=== PATIENT | male | born 1950 | race Caucasian/White ===

== ENCOUNTER → 2020-12-12 10:16 | Outpatient (BNVA) | payer MEDICARE, OTHER, SELFPAY | PROVIDERS: PCP Nurse Practitioner Family; Visit Provider Urology | DX: N52.9 Male erectile dysfunction, unspecified (principal); N41.1 Chronic prostatitis; R35.1 Nocturia | CPT/HCPCS: 51798; 99212 ==

== ENCOUNTER → 2021-01-25 08:56 | Outpatient (BNVA) | payer MEDICARE, OTHER, SELFPAY | PROVIDERS: Visit Provider Urology | DX: N41.1 Chronic prostatitis (principal); N52.9 Male erectile dysfunction, unspecified | CPT/HCPCS: Q3014 ==

== ENCOUNTER → 2021-08-14 13:11 | Outpatient (BNVA) | payer MEDICARE, OTHER, SELFPAY | PROVIDERS: PCP Nurse Practitioner Family; Visit Provider Urology | DX: N41.1 Chronic prostatitis (principal); R35.1 Nocturia; N52.9 Male erectile dysfunction, unspecified | CPT/HCPCS: 51798; 99212 ==

== ENCOUNTER → 2022-02-14 13:01 | Outpatient (BNVA) | payer MEDICARE, OTHER, SELFPAY | PROVIDERS: PCP Registered Nurse; Visit Provider Urology | DX: N41.1 Chronic prostatitis (principal); R35.1 Nocturia; N52.9 Male erectile dysfunction, unspecified | CPT/HCPCS: 51798; 99212 ==

== ENCOUNTER 2023-02-13 13:42 | Outpatient (AMB) | payer MEDICARE, OTHER, SELFPAY ==
--- NOTE | 2023-02-13 13:48 | MHC.OFFVIS ---
Intake Intake Visit Reasons: yearly follow up/PSA(set) Intake Note: Patient is Present for Follow Up Urology Medication: Finasteride, Antibiotic Allergies: Penicillin, Sulfa, Clindamycin Blood Thinners: None Pharmacy: [facility]: Compliants: Allergies penicillin G Allergy (Unknown, Verified 02/13/23 13:53) Unknown Sulfa (Sulfonamide Antibiotics) Allergy (Unknown, Verified 02/13/23 13:53) Unknown Clindamycin HCl Allergy (Unknown, Uncoded 02/13/23 13:53) unk HPI HPI Comments History of Present Illness Details ?Rosie MELCHOR is a very pleasant male. He is a patient of Dr. Schwartz. He is seen for the following urologic conditions. - chronic prostatitis - erectile dysfunction - lower urinary tract symptoms PSA stable Has had breast tenderness with finasteride Cut back to 1/2 tablet Thursday, Retrial sildenafil 100 mg on demand Prescription provided Prostatitis/CPPS:? Chronic prostatitis yearly follow-up ? They present for evaluation of, chronic prostatitis.? He is currently being treated with?prior TURP for BPH.? Current symptoms include? nocturia ?Yes ? pelvic discomfort ?Yes ? Symptoms have been present?for a number of months.? Laboratory testing included?PSA 09/05 6.5 ?09/05 Urine genetics - Staphylococcus pansensitive clarity ?02/05 1.9 ?08/07 1.1, 02/07 1.0, 02/08 0.7, 02/09 0.9 ? Pain is present?lower back, perineum.? Associated conditions include? STDs ?No ? nephrolithiasis ?No ? diabetes ?No ? inflammatory bowel disease ?No ? diverticulitis ?No ? radiation to the pelvis ?No ? surgery ?BPH Erectile dysfunction Responsive to sildenafil Trial daily Cialis 5 mg PFSH Medical History Chronic prostatitis Migraine Nocturia Surgical History History of surgery Review of Systems Const Denies chills and Denies fever(s) Card Reports no additional complaints and Denies syncope Resp Denies cough GI Denies abdominal pain and Denies heartburn Reports as per HPI and Denies change in libido Neuro Denies syncope Psych Denies change in libido Endo Denies change in libido Physical Exam Const General: cooperative, healthy appearing, comfortable and no acute distress Orientation/consciousness: patient oriented x3 HEENT Face and sinus: Yes normal facial exam Mouth: moist mucous membranes Neck Neck: Yes normal visual inspection, Yes full ROM and Yes trachea midline Chest Chest palpation & inspection: normal inspection of the chest Resp Effort & Inspection: normal respiratory effort, able to speak in complete sentences and no respiratory distress GI Inspection: Yes normal to inspection Back/Spine/Pelvis Cervical Spine: normal cervical lordosis Thoracic/Lumbar Spine: thoracic and lumbar spine normal to inspection Skin General skin exam: no rashes or lesions noted Neuro General: patient oriented x3, gait normal, tone normal and moves all extremities Extrem General: Yes normal to inspection and Yes capillary refill normal Assessment & Plan Assessment & Plan (1) Nocturia: Code(s): R35.1 - Nocturia (2) Chronic prostatitis: Code(s): N41.1 - Chronic prostatitis (3) Erectile dysfunction: Code(s): N52.9 - Male erectile dysfunction, unspecified Qualifiers: Erectile dysfunction type: vasculogenic 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 No major barriers to patient understanding were identified. An opportunity to ask questions regarding the treatment plan was provided. All questions were answered. The patient expressed understanding and agreement with the above treatment plan. The patient is aware they should contact our office by phone for worsening of their current condition or the appearance of new urologic symptoms. Compliance is encouraged with any medications and followup testing that is ordered. It is a privilege to participate in the urologic care of your patient. If you have any questions or concerns regarding treatment for the above conditions, or other urologic issues, please do not hesitate to contact me. The office telephone contact is [phone]. This note is constructed using voice recognition software. While every effort has been made to ensure accuracy shipping room helper errors may have been included. 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
== END 2023-02-13 14:08 | disposition home or self-care (01) ==
PROVIDERS: Visit Provider Urology
DX: R35.1 Nocturia (principal); N41.1 Chronic prostatitis; N52.01 Erectile dysfunction due to arterial insufficiency
CPT/HCPCS: 99214

== ENCOUNTER → 2023-02-13 13:42 | Outpatient (BNVA) | payer MEDICARE, OTHER, SELFPAY | PROVIDERS: Visit Provider Urology | DX: R35.1 Nocturia (principal); N41.1 Chronic prostatitis; N52.01 Erectile dysfunction due to arterial insufficiency | CPT/HCPCS: 99212 ==

== ENCOUNTER 2023-08-18 12:54 | Outpatient (AMB) | payer MEDICARE, OTHER, SELFPAY ==
--- NOTE | 2023-08-18 13:09 | MHC.OFFVIS ---
Intake Visit Reasons: 6M Med Review(Sildenafil) Intake Note: Patient is Present for Follow Up Urology Medication: Finasteride, (Patient is not taking Sildenafil) Antibiotic Allergies: Penicillin, Sulfa, Clindamycin Blood Thinners: None Allergies penicillin G Allergy (Unknown, Verified 08/18/23 13:13) Unknown Sulfa (Sulfonamide Antibiotics) Allergy (Unknown, Verified 08/18/23 13:13) Unknown Clindamycin HCl Allergy (Unknown, Uncoded 08/18/23 13:13) unk HPI Comments Details: ?Rosie MELCHOR is a very pleasant male. He is a patient of Dr. Edmondson. He is seen for the following urologic conditions. - chronic prostatitis - erectile dysfunction - lower urinary tract symptoms Six-month follow-up Breast tenderness resolved after decreasing finasteride Suggest coming off finasteride Has noticed some degree of discoloration with urine May increase sildenafil dosing - does have facial flushing UA normal Six-month follow-up PSA Prostatitis/CPPS:? Chronic prostatitis yearly follow-up ? They present for evaluation of, chronic prostatitis.? He is currently being treated with?prior TURP for BPH.? Current symptoms include? nocturia ?Yes ? pelvic discomfort ?Yes ? Symptoms have been present?for a number of months.? Laboratory testing included?PSA 09/05 6.5 ?09/05 Urine genetics - Staphylococcus pansensitive clarity ?02/05 1.9, 08/07 1.1, 02/07 1.0, 02/08 0.7, 02/09 0.9 ? Pain is present?lower back, perineum.? Erectile dysfunction Continues with moderate response to sildenafil 100 mg Failed 5 mg daily tadalafil PFSH Medical History Migraine Chronic prostatitis Nocturia Surgical History History of surgery Review of Systems Const Denies chills and Denies fever(s) Card Reports no additional complaints and Denies syncope Resp Denies cough GI Denies abdominal pain and Denies heartburn Reports as per HPI and Denies change in libido Neuro Denies syncope Psych Denies change in libido Endo Denies change in libido Physical Exam Const General: cooperative, healthy appearing, comfortable and no acute distress Orientation/consciousness: patient oriented x3 HEENT Face and sinus: Yes normal facial exam Mouth: moist mucous membranes Neck Neck: Yes normal visual inspection, Yes full ROM and Yes trachea midline Chest Chest palpation & inspection: normal inspection of the chest Resp Effort & Inspection: normal respiratory effort, able to speak in complete sentences and no respiratory distress GI Inspection: Yes normal to inspection Back/Spine/Pelvis Cervical Spine: normal cervical lordosis Thoracic/Lumbar Spine: thoracic and lumbar spine normal to inspection Skin General skin exam: no rashes or lesions noted Neuro General: patient oriented x3, gait normal, tone normal and moves all extremities Extrem General: Yes normal to inspection and Yes capillary refill normal Assessment & Plan Assessment & Plan (1) Erectile dysfunction: Code(s): N52.9 - Male erectile dysfunction, unspecified Category: Medical Qualifiers: Erectile dysfunction type: vasculogenic 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 No major barriers to patient understanding were identified. An opportunity to ask questions regarding the treatment plan was provided. All questions were answered. The patient expressed understanding and agreement with the above treatment plan. The patient is aware they should contact our office by phone for worsening of their current condition or the appearance of new urologic symptoms. Compliance is encouraged with any medications and followup testing that is ordered. It is a privilege to participate in the urologic care of your patient. If you have any questions or concerns regarding treatment for the above conditions, or other urologic issues, please do not hesitate to contact me. The office telephone contact is [phone]. This note is constructed using voice recognition software. While every effort has been made to ensure accuracy car manager errors may have been included. 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
== END 2023-08-18 13:48 | disposition home or self-care (01) ==
PROVIDERS: PCP Registered Nurse; Visit Provider Urology
DX: N52.01 Erectile dysfunction due to arterial insufficiency (principal); R35.1 Nocturia; N41.1 Chronic prostatitis
CPT/HCPCS: 99213

== ENCOUNTER → 2023-08-18 12:54 | Outpatient (BNVA) | payer MEDICARE, OTHER, SELFPAY | PROVIDERS: PCP Registered Nurse; Visit Provider Urology | DX: N52.01 Erectile dysfunction due to arterial insufficiency (principal); R35.1 Nocturia; N41.1 Chronic prostatitis | CPT/HCPCS: 99212 ==

== ENCOUNTER 2024-02-17 13:00 | Outpatient (AMB) | payer MEDICARE, OTHER, SELFPAY ==
--- NOTE | 2024-02-17 13:06 | A.OFFVIS_ITS ---
Intake Visit Reasons: 6m/PSA(set) Intake Note: Patient is Present for PSA Follow Up Urology Med: No longer on Finasteride.Sildenafil Antibiotic Allergy: Sulfa, Penicillins, Clindamycin Blood Thinner: None Recent PSA: 02/10/24 PSA: 1.3 [employer] Consultant Required: No Allergies penicillin G Allergy (Unknown, Verified 02/17/24 13:06) Unknown Sulfa (Sulfonamide Antibiotics) Allergy (Unknown, Verified 02/17/24 13:06) Unknown Clindamycin HCl Allergy (Unknown, Uncoded 02/17/24 13:06) unk HPI Comments Details: ?Rosie MELCHOR is a very pleasant male. He is a patient of Dr. Edmondson. He is seen for the following urologic conditions. - chronic prostatitis - erectile dysfunction - lower urinary tract symptoms Six-month follow-up Sildenafil still effective Prostate stable Move to yearly Prostatitis/CPPS:? Chronic prostatitis yearly follow-up ? They present for evaluation of, chronic prostatitis.? He is currently being treated with?prior TURP for BPH.? Current symptoms include? nocturia ?Yes ? pelvic discomfort ?Yes ? Symptoms have been present?for a number of months.? Laboratory testing included?PSA 09/05 6.5 ?09/05 Urine genetics - Staphylococcus pansensitive clarity ?02/05 1.9, 08/07 1.1, 02/07 1.0, 02/08 0.7, 02/09 0.9, 02/10 1.3 ? Pain is present?lower back, perineum.? Erectile dysfunction Continues with moderate response to sildenafil 100 mg Failed 5 mg daily tadalafil PFSH Medical History Migraine Chronic prostatitis Nocturia Surgical History History of surgery Review of Systems Const Denies chills and Denies fever(s) Card Reports no additional complaints and Denies syncope Resp Denies cough GI Denies abdominal pain and Denies heartburn Reports as per HPI and Denies change in libido Neuro Denies syncope Psych Denies change in libido Endo Denies change in libido Physical Exam Const General: cooperative, healthy appearing, comfortable and no acute distress Orientation/consciousness: patient oriented x3 HEENT Face and sinus: Yes normal facial exam Mouth: moist mucous membranes Neck Neck: Yes normal visual inspection, Yes full ROM and Yes trachea midline Chest Chest palpation & inspection: normal inspection of the chest Resp Effort & Inspection: normal respiratory effort, able to speak in complete sentences and no respiratory distress GI Inspection: Yes normal to inspection Back/Spine/Pelvis Cervical Spine: normal cervical lordosis Thoracic/Lumbar Spine: thoracic and lumbar spine normal to inspection Skin General skin exam: no rashes or lesions noted Neuro General: patient oriented x3, gait normal, tone normal and moves all extremities Extrem General: Yes normal to inspection and Yes capillary refill normal Assessment & Plan Assessment & Plan (1) Nocturia: Code(s): R35.1 - Nocturia Category: Medical (2) Chronic prostatitis: Code(s): N41.1 - Chronic prostatitis Category: Medical (3) Erectile dysfunction: Code(s): N52.9 - Male erectile dysfunction, unspecified Category: Medical Qualifiers: Erectile dysfunction type: vasculogenic 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 Qualified Code(s): N52.01 - Erectile dysfunction due to arterial insufficiency Plan Twelve month follow-up Orders: Orders Prostate Specific Antigen 364 Days N41.1 - Chronic prostatitis Medications: Refilled sildenafil administer 60 minutes before intended activity 100 mg PO ONCE 30 days PRN 30 tabs 1RF sexual activity N52.9 - Male erectile dysfunction, unspecified Discontinued prednisone Discontinued Reason: Patient Completed Course 20 mg PO DAILY 5 days 5 tabs 0RF N20.0 - Calculus of kidney, N41.1 - Chronic prostatitis levofloxacin Discontinued Reason: Patient Completed Course 500 mg PO DAILY 14 days 14 tabs 0RF N39.0 - Urinary tract infection, site not specified, N41.1 - Chronic prostatitis finasteride Discontinued Reason: Patient Completed Course 5 mg PO DAILY 90 days 90 tabs 1RF Patient Instructions: Imaging studies, laboratory and physical exam results were discussed and reviewed in detail. No major barriers to patient understanding were identified. An opportunity to ask questions regarding the treatment plan was provided. All questions were answered. The patient expressed understanding and agreement with the above treatment plan. The patient is aware they should contact our office by phone for worsening of their current condition or the appearance of new urologic symptoms. Compliance is encouraged with any medications and followup testing that is ordered. It is a privilege to participate in the urologic care of your patient. If you have any questions or concerns regarding treatment for the above conditions, or other urologic issues, please do not hesitate to contact me. The office telephone contact is [phone]. This note is constructed using voice recognition software. While every effort has been made to ensure accuracy bus repair supervisor errors may have been included. 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
== END 2024-02-17 13:36 | disposition home or self-care (01) ==
LOC: HO.HUSH 13:01
PROVIDERS: PCP Registered Nurse; Visit Provider Urology
DX: R35.1 Nocturia (principal); N41.1 Chronic prostatitis; N52.01 Erectile dysfunction due to arterial insufficiency
CPT/HCPCS: 99213

== ENCOUNTER → 2024-02-17 13:00 | Outpatient (BNVA) | payer MEDICARE, OTHER, SELFPAY | PROVIDERS: PCP Registered Nurse; Visit Provider Urology | DX: N41.1 Chronic prostatitis (principal); R35.1 Nocturia; N52.01 Erectile dysfunction due to arterial insufficiency; N39.0 Urinary tract infection, site not specified; N20.0 Calculus of kidney; Z79.899 Other long term (current) drug therapy | CPT/HCPCS: 99212 ==

== ENCOUNTER 2025-02-15 12:58 | Outpatient (AMB) | payer MEDICARE, OTHER, SELFPAY ==
--- NOTE | 2025-02-15 13:02 | MHC.OFFVIS ---
Intake Visit Reasons: 1y/PSA Intake Note: Patient is present for Yearly PSA Follow up Urology Med: Sildenafil Antibiotic Allergy: Penicillin, Sulfa,Clindamycin Blood Thinner: None Roving Frame Tender Required: No Accompanied by: Self / Same As Patient Allergies penicillin G Allergy (Unknown, Verified 02/15/25 13:05) Unknown Sulfa (Sulfonamide Antibiotics) Allergy (Unknown, Verified 02/15/25 13:05) Unknown Clindamycin HCl Allergy (Unknown, Uncoded 02/15/25 13:05) unk HPI Comments Details: ?Rosie MELCHOR is a very pleasant male. He is a patient of Dr. Schwartz and Rena. He is seen for the following urologic conditions. - chronic prostatitis - erectile dysfunction - lower urinary tract symptoms Yearly follow-up Sildenafil still effective Prostate stable Discussed erections Is interested in information about a penile constriction band Provided Prostatitis/CPPS:? Chronic prostatitis yearly follow-up ? They present for evaluation of, chronic prostatitis.? He is currently being treated with?prior TURP for BPH.? Current symptoms include? nocturia ?Yes ? pelvic discomfort ?Yes ? Symptoms have been present?for a number of months.? Laboratory testing included?PSA 09/05 6.5 ?09/05 Urine genetics - Staphylococcus pansensitive clarity ?02/05 1.9, 08/07 1.1, 02/07 1.0, 02/08 0.7, 02/09 0.9, 02/10 1.3, 02/11 1.6 ? Pain is present?lower back, perineum.? Erectile dysfunction Continues with moderate response to sildenafil 100 mg Failed 5 mg daily tadalafil PFSH Medical History Migraine Chronic prostatitis Nocturia Surgical History History of surgery Review of Systems Const Denies chills and Denies fever(s) Card Reports no additional complaints and Denies syncope Resp Denies cough GI Denies abdominal pain and Denies heartburn Reports as per HPI and Denies change in libido Neuro Denies syncope Psych Denies change in libido Endo Denies change in libido Physical Exam Const General: cooperative, healthy appearing, comfortable and no acute distress Orientation/consciousness: patient oriented x3 HEENT Face and sinus: Yes normal facial exam Mouth: moist mucous membranes Neck Neck: Yes normal visual inspection, Yes full ROM and Yes trachea midline Chest Chest palpation & inspection: normal inspection of the chest Resp Effort & Inspection: normal respiratory effort, able to speak in complete sentences and no respiratory distress GI Inspection: Yes normal to inspection Back/Spine/Pelvis Cervical Spine: normal cervical lordosis Thoracic/Lumbar Spine: thoracic and lumbar spine normal to inspection Skin General skin exam: no rashes or lesions noted Neuro General: patient oriented x3, gait normal, tone normal and moves all extremities Extrem General: Yes normal to inspection and Yes capillary refill normal Assessment & Plan Assessment & Plan (1) Chronic prostatitis: Code(s): N41.1 - Chronic prostatitis Category: Medical (2) Erectile dysfunction: Code(s): N52.9 - Male erectile dysfunction, unspecified Category: Medical Qualifiers: Erectile dysfunction type: vasculogenic 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 While every effort has been made to ensure accuracy associate financial representative errors may have been included. Imaging studies, laboratory and physical exam results were discussed and reviewed in detail. No major barriers to patient understanding were identified. An opportunity to ask questions regarding the treatment plan was provided. All questions were answered. The patient expressed understanding and agreement with the above treatment plan. The patient is aware they should contact our office by phone for worsening of their current condition or the appearance of new urologic symptoms. Compliance is encouraged with any medications and followup testing that is ordered. It is a privilege to participate in the urologic care of your patient. If you have any questions or concerns regarding treatment for the above conditions, or other urologic issues, please do not hesitate to contact me. The office telephone contact is [phone]. 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
--- OUTSIDE RECORDS SUMMARY | 2025-02-15 16:27 | XMS_ITS | Clinical Summary ---
Author Organization [facility] [employer] Address [address] [place] [address] Phone Care Team Providers Care Dining Room Manager Name Role Phone Prabhu Pop Primary Care Provider + Allergies Active Allergy Reactions Criticality Noted Date Comments Clindamycin 10/25/2020 Penicillin G 10/01/2017 Sulfamethoxazole-Trimethoprim 2017 Medications cycloSPORINE (RESTASIS) 0.05 % ophthalmic emulsion Restasis 0.05 % eye drops in a dropperette 1 Drop each Eye 2 x Daily Active pantoprazole (PROTONIX) 40 mg EC tablet Take 1 tablet (40 mg total) by mouth 1 (one) time each day. Active atorvastatin (LIPITOR) 10 mg tablet Take 1 tablet (10 mg total) by mouth 1 (one) time each day. Active LORazepam (ATIVAN) 1 mg tablet Take 1 tablet (1 mg total) by mouth 1 (one) time each day. Active ibuprofen (ADVIL,MOTRIN) 800 mg tablet Take 1 tablet (800 mg total) by mouth every 8 (eight) hours if needed. Active SUMAtriptan (IMITREX) 100 mg tablet Take 1 tablet (100 mg total) by mouth 1 (one) time if needed. . May repeat dose once after 2 hours, if needed Active magnesium oxide (MAG-OX) 400 mg magnesium tablet Take 1 tablet (400 mg total) by mouth 1 (one) time each day. Active amLODIPine (NORVASC) 10 mg tablet Take 1 tablet (10 mg total) by mouth 1 (one) time each day. 90 tablet 3 5 06/24/19 26 Active lisinopril (PRINIVIL,ZEST RIL) 40 mg tablet Take 1 tablet (40 mg total) by mouth at bedtime. 90 tablet 3 5 Active atenoloL (TENORMIN) 50 mg tablet Take 1 tablet (50 mg total) by mouth 1 (one) time each day. 90 tablet 3 5 Active atenoloL (TENORMIN) 50 mg tablet Take 1 tablet (50 mg total) by mouth 1 (one) time each day. 90 tablet 3 4 01/31/20 25 Discontin ued(Reord er) Active Problems Problem Noted Date Diagnosed Date Abnormal EKG 03/01/2024 Assessment & Plan (03/01/2024 9:46 AM EST): EKG today showing T wave inversions in inferior leads which were not previously noted. I will send patient for nuclear stress test to evaluate for ischemia. I will let him know results when available. Orders: Nuclear stress test with myocardial perfusion; Future Aortic dilatation (CMS/HCC V24) 08/12/2021 Assessment & Plan (03/01/2024 9:46 AM EST): Patient with mild dilatation of the ascending aorta echocardiography which remains stable. He has good blood pressure control. We will update another echocardiogram in 2 years. I have reviewed with the patient the importance of a heart healthy lifestyle which includes eating a low-fat low-salt diet, getting regular exercise, maintaining a healthy weight, not smoking, and following up with routine medical care. Orders: ECG 12 lead Transthoracic echocardiogram (TTE) complete with PRN contrast, bubble, strain, and 3D order panel; Future Hyperlipidemia 08/12/2021 Assessment & Plan (03/01/2024 9:46 AM EST): Patient continues on atorvastatin. Goal LDL is less than 100. Continue was atorvastatin prescribed. Orders: ECG 12 lead Hypertension 08/12/2021 Assessment & Plan (03/01/2024 9:46 AM EST): BP is not well controlled. Last creatinine 0.87. I will increase lisinopril to 40mg daily at bedtime. Continue with amlodipine and atenolol as prescribed. Prescriptions renewed. I will have patient repeat labs in 2 weeks. Orders: ECG 12 lead Nuclear stress test with myocardial perfusion; Future Transthoracic echocardiogram (TTE) complete with PRN contrast, bubble, strain, and 3D order panel; Future Basic metabolic panel; Future Basic metabolic panel Resolved Problems Problem Noted Date Diagnosed Date Resolved Date Tendonitis of shoulder, right 12/25/2020 03/01/2024 Intestinal adhesions 12/14/2017 024 Encounters Date Type Department Care Team Description 12/26/2024 2:00 PM EDT Ancillary Procedure [facility] [address] [place] [address] Primary hypertension; Aortic dilatation (CMS/HCC V24) from Last 3 Months Immunizations Immunization Administration Dates Next Due Pfizer SARS-CoV-2 COVID-19, mRNA, LNP-S, preservative free 08/07/2020,07/16/2020 Surgical History Surgery Date Site/Laterality Comments OTHER SURGICAL HISTORY pr repair first abdominal wall hernia OTHER SURGICAL HISTORY TONSILLECTOMY & ADENOIDECTOMY <AGE 12 Medical History Medical History Date Comments Migraine Acid reflux Prostate disease Family History Medical History Relation Name Comments CANCER OF THE STOMACH Father Dementia Mother Pneumonia Mother Relation Name Status Comments Father Mother Social History Tobacco Use Types Packs/Day Years Used Date Smoking Tobacco: Never Smokeless Tobacco: Never Tobacco Cessation:Counseling Given: Not Answered Alcohol Use Standard Drinks/Week Comments Yes 0 (1 standard drink = 0.6 oz pure alcohol) 1 glass of wine & 1 beer per day Sex and Gender Information Value Date Recorded Sex Assigned at Not on file Legal Sex Male 3:29 PM EST Gender Identity Not on file Sexual Orientation Not on file Obstetrics History Last Filed Vital Signs Vital Sign Reading Time Taken Comments Blood Pressure 137/81 12/26/2024 2:48 PM EDT Pulse 64 06/23/2024 10:36 AM EST Temperature - - Respiratory Rate - - Oxygen Saturation 98% 06/23/2024 10:36 AM EST Inhaled Oxygen Concentration - - Weight 84.4 kg (186 lb) 12/26/2024 2:48 PM EDT Height 177.8 cm (5' 10 ) 12/26/2024 2:48 PM EDT Body Mass Index 26.69 12/26/2024 2:48 PM EDT Plan of Treatment Upcoming Encounters Date Type Department Care Team (Late st Contact Info) Description 03/10/2025 10:40 AM EST Office Visit [facility] [address] [place] [address] Aixa Duncan NP [address] [place] [address] [address] [place] [address] Health Maintenance Due Date Last Done Comments Colorectal Cancer Screening: Colonoscopy 1950 DTaP,Tdap,and Td Vaccines (1 - Tdap) 1969 Hepatitis A Vaccines (1 of 2 - Risk 2-dose series) 1969 Hepatitis B Vaccines (1 of 3 - Risk 3-dose series) 2010 Cholesterol Screening (Lipid Panel) 03/19/2022 Falls Risk Assessment 03/19/2022 Hepatitis C Screening 03/19/2022 Social Influencers of Health Screening 03/19/2022 Medicare Annual Wellness Visit 09/12/2023 09/11/2022 Depression Screening 04/20/2024 COVID-19 Vaccine ( season) 2024 02/04/2024, 01/12/2023, 01/18/2022, Additional history exists Influenza Vaccine (#1) 2024 , 01/12/2023, 01/18/2022, Additional history exists Hypertension/CHF/CAD Annual BMP Blood Test 03/21/2025 03/21/2024 Pneumococcal Vaccine: 50+ Years Completed 01/13/2018, 01/13/2017, 03/28/2012 Zoster Vaccines Completed 04/26/2020, 01/19, 04/28/2012 RSV Immunization Adult Patients Completed 01/12/2023 HIB Vaccines Aged Out No longer eligi ble based on patient's age to complete this topic HPV Vaccines Aged Out No longer eligi ble based on patient's age to complete this topic IPV Vaccines Aged Out No longer eligi ble based on patient's age to complete this topic MMR Vaccines Aged Out No longer eligi ble based on patient's age to complete this topic Meningococcal ACWY Vaccine Aged Out N o longer eligible based on patient's age to complete this topic Meningococcal B Vaccine Aged Out No l onger eligible based on patient's age to complete this topic RSV Immunization Patients Under 20 months Aged Out No longer eligible based on patient's age to complete this topic Varicella Vaccines Aged Out No longer eligible based on patient's age to complete this topic Medical Devices Implanted Type Area Mutuel Machine Operator Device Identifier Shelf Expiration Date Model / Serial / Lot Brandon 10mm Stbl Phalngl Metatrsl Ostm-Manu [id number] Implanted:Qty: 1 on 07/08/2023 by Basilio Bueno DPM Right: Foot [employer]ED [employer]OUARD 04/25/2025 [id number] / / [id number] Procedures Procedure Name Priority Date/Time Associated Diagnosis Comments TRANSTHORACIC ECHOCARDIOGRAM (TTE) COMPLETE Routine 12/26/2024 2:49 PM EDT Primary hypertension Aortic dilatation (CMS/HCC V24) BASIC METABOLIC PANEL Routine 03/21/2024 1:49 PM EST Primary hypertension from Last 3 Months or Most Recently Relevant to Health Maintenance Results * (ABNORMAL) TRANSTHORACIC ECHOCARDIOGRAM (TTE) COMPLETE (12/26/2024 2:49 PM EDT) Left Atrium Minor [place] 5.6 cm CV PACS Left Atrium Major [place] 6.5 cm CV PACS LA Area Sys (A2C) 23 cm2 CV PACS LA Area Sys (A4C) 24 cm2 CV PACS LA Volume (BP) 77 mL CV PACS RA Area 17.6 cm2 CV PACS RA 2D Volume 48 mL CV PACS AV Mean Gradient 6 mmHg CV PACS AV Mean Gradient 6 mmHg CV PACS Ao VTI 40.4 cm CV PACS AV Peak Eloy 1.8 m/s CV PACS AV Peak Gradient 14 mmHg CV PACS AV Area Continuity Equation 2.1 cm2 CV PACS AV Area Peak Velocity 2.0 cm2 CV PACS Aortic Sinus Valsalva 3.8 cm CV PACS Ascending Aorta 4.2 cm CV PACS IVSD 1.3(A) 0.6 - 1.0 cm CV PACS LVIDD 4.5 4.2 - 5.8 cm CV PACS LVIDS 3.0 2.5 - 4.0 cm CV PACS LVOT Diameter 2.2 cm CV PACS LVOT Mean Eloy 0.6 m/s CV PACS LVOT Mean Grad 2 mmHg CV PACS LVOT Peak VTI 22.8 cm CV PACS LVOT Peak Eloy 1.0 m/s CV PACS LVOT Peak Gradient 4 mmHg CV PACS LVPWD 1.2(A) 0.6 - 1.0 cm CV PACS MV E' Tissue Velocity Lateral 9 cm/s CV PACS MV E' Tissue Velocity Septal 6 cm/s CV PACS LVOT Area 3.8 cm2 CV PACS LVOT Stroke Volume 87 mL CV PACS E Wave Deceleration Time 183 119 - 242 ms CV PACS MV Peak A Eloy 0.44 m/s CV PACS MV Peak E Eloy 0.83 m/s CV PACS MV Mean Gradient 1 mmHg CV PACS MV Mean Gradient 1 mmHg CV PACS MV Mean Gradient 1 mmHg CV PACS MV VTI 26.7 cm CV PACS Mitral Valve Max Velocity 1.0 m/s CV PACS MV Peak Gradient 4 mmHg CV PACS MV Area Continuity Equation 3.2 cm2 CV PACS PV Acceleration Time 155 ms CV PACS PV Acceleration Time 148 ms CV PACS PV Acceleration Time 152 ms CV PACS RV Diastolic Basal Dimension 4.7(A) 2.5 - 4.1 cm CV PACS RV S' 12 cm/s CV PACS TAPSE 23 mm CV PACS TR Peak Velocity 2.21 m/s CV PACS TR Peak Gradient 20 mmHg CV PACS E/E' Ratio Septal 14 CV PACS E/E' Ratio Averaged 12 CV PACS Relative Wall Thickness ratio 0.53 CV PACS LVOT:AV VTI Index 0.56 CV PACS FS 33 % CV PACS LV Mass 2D 210 g CV PACS MV VTI:LVOT VTI ratio 1.2 CV PACS LVOT flow 228 mL/s CV PACS AV Velocity Ratio 0.56 CV PACS E/A Ratio 1.9 CV PACS E/E' Ratio Lateral 9 CV PACS LVOT Stroke Index 43 mL/m2 CV PACS Ascending Aorta Index 2.08 cm/m2 CV PACS RA 2D Volume Index 24 mL/m2 CV PACS COLTEN Index (VTI) 1.06 cm2/m2 CV PACS COLTEN Index (Pk Leoy) 0.99 cm2/m2 CV PACS LVIDD Index 2.23 cm/m2 CV PACS LVIDS Index 1.49 cm/m2 CV PACS LA Volume Index (BP) 38 mL/m2 CV PACS LV Mass Index 2D 104 g/m2 CV PACS BSA 2.04 m2 CV PACS Anatomical Region Laterality Modality Ultrasound Narrative 12/26/2024 3:09 PM EDT Left ventricle cavity size is normal. Left ventricular systolic function is in the normal range with an ejection fraction of 55-60%. No regional LV wall motion abnormalities noted. Left ventricle mild concentric hypertrophy. Right ventricle is enlarged. Right ventricular systolic function is low normal. The Sinus of Valsalva is dilated (3.8 cm). The ascending aorta is dilated (4.2 cm). Compared to previous study dated 05/09/2024 no change in the diameter of the aorta Left Ventricle Left ventricle cavity size is normal. There is mild concentric hypertrophy. Systolic function is normal with an ejection fraction of 55-60%. There are no regional LV wall motion abnormalities. Indeterminate diastolic function. Right Ventricle Right ventricle cavity is dilated. Systolic function is low normal. Left Atrium Left atrium cavity is mildly dilated. Right Atrium Right atrium cavity is normal. IVC/SVC Inferior vena cava structure is normal. RA pressures is estimated to be 3 mmHg (IVC diameter <21 mm and decreases >50% during inspiration). Mitral Valve The leaflets are mildly thickened. There is trace to mild regurgitation. There is no evidence of mitral valve stenosis. Tricuspid Valve Tricuspid valve structure is normal. There is trace regurgitation. There is no evidence of tricuspid valve stenosis. Aortic Valve The aortic valve is trileaflet. The leaflets are mildly thickened. There is no regurgitation or stenosis. Pulmonic Valve Visualized portions of the pulmonic valve appear normal. There is trace pulmonic valve regurgitation. There is no evidence of pulmonic valve stenosis. Ascending Aorta The Sinus of Valsalva is (3.8 cm). The ascending aorta is (4.2 cm). Pericardium Pericardium appears normal. There is no pericardial effusion. Study Details Overall the study quality was adequate. Wall Scoring Baseline Score Index: 1.00 The left ventricular wall motion is normal. us Aixa Duncan ETHOLOGIST CV ECHO PROCEDURES Final Res ult * Basic metabolic panel (03/21/2024 1:49 PM EST) Glucose 95 70 - 99 mg/dL [facility] 1 Blood Urea Nitrogen (BUN) 14 8 - 27 mg/dL [facility] 1 Creatinine 0.90 0.76 - 1.27 mg/dL [facility] 1 eGFR 90 >59 mL/min/1.7 3 [facility] 1 BUN/Creatinine Ratio 16 10 - 24 [facility] 1 Sodium 141 134 - 144 mmol/L [facility] 1 Potassium 4.2 3.5 - 5.2 mmol/L [facility] 1 Chloride 102 96 - 106 mmol/L [facility] 1 Carbon Dioxide 26 20 - 29 mmol/L [facility] 1 Calcium 9.8 8.6 - 10.2 mg/dL [facility] 1 Blood Venous blood specimen / Unknown 03/21/2024 1:49 PM EST 03/21/2024 Narrative [facility] 1 - 03/22/2024 3:06 AM EST Performed at: 01 - [facility] [address] [id number] Dynamics Ax Developer: Christal Meyer MD, Phone: [phone] us Aixa Duncan NP LAB BLOOD ORDERABLES Final R esult [facility] 1 from Last 3 Months or Most Recently Relevant to Health Maintenance Insurance MEDICARE [facility] Care Teams Dining Room Manager Relationship Specialty Start Date End Date Prabhu Pop PA [address] [place] [address] PCP - General 03/31/24
--- OUTSIDE RECORDS SUMMARY | 2025-02-15 16:27 | XMS_ITS | Clinical Summary ---
Author Organization [facility] Address [address] [place] [address] Care Team Providers Care Hospitalist Nocturnist Physician Name Role Phone Jody Chase NP Primary Care Provider [phone] Allergies Active Allergy Reactions Criticality Noted Date Comments Clindamycin Anaphylaxis High 07/01/2023 Other reaction(s): Unknown Penicillin G 10/01/2017 Penicillin G Benzathine 07/08/2023 Other reaction(s): Unknown Penicillins Hives Low 07/01/2023 Sulfamethoxazole-Trimethopr im Hives Low 10/01/2017 Other reaction(s): Unknown Medications Medication Sig Dispensed Refills Start Date End Date Status cycloSPORINE (RESTASIS OP) Apply to eye 2 (two) times a day. 0 Active doxycycline 50 MG capsule Take 1 capsule (50 mg total) by mouth 2 (two) times a day. Chronic Eye infection 0 Active pantoprazole (PROTONIX) 40 MG tablet Take 1 tablet (40 mg total) by mouth every morning on an empty stomach. 0 Active lisinopril (PRINIVIL,ZESTRIL) tablet 20 mg Take 1 tablet (20 mg total) by mouth daily. 0 Active amLODIPine (NORVASC) tablet 5 mg Take 1 tablet (5 mg total) by mouth daily. 0 Active atenolol (TENORMIN) tablet 50 mg Take 1 tablet (50 mg total) by mouth daily. 0 Active atorvastatin (LIPITOR) tablet 10 mg Take 1 tablet (10 mg total) by mouth every evening. 0 Active LORazepam (ATIVAN) 1 MG tablet Take 1 tablet (1 mg total) by mouth daily. 0 Active Ibuprofen (MOTRIN IB PO) Take by mouth every 8 (eight) hours as needed. 0 Active Magnesium 400 MG CAPS Take by mouth daily. 0 Active finasteride (PROSCAR) 5 MG tablet Take 1 tablet (5 mg total) by mouth daily. 0 Active SUMAtriptan Succinate (IMITREX PO) Take by mouth daily as needed. 0 Active celecoxib (CeleBREX) 200 MG capsule Take 1 capsule (200 mg total) by mouth daily. 0 06/30/2023 Active Social History Tobacco Use Types Packs/Day Years Used Date Smoking Tobacco: Former Cigarettes 3 20 Q uit: 1989 Smokeless Tobacco: Never Tobacco Cessation:Counseling Given: Not Answered Alcohol Use Standard Drinks/Week Comments Yes 21 (1 standard drink = 0.6 oz pu re alcohol) daily Sex and Gender Information Value Date Recorded Sex Assigned at Male 07/01/2023 9:19 AM EDT Gender Identity Not on file Sexual Orientation Not on file Job Start Date Occupation Industry Not on file Not on file Not on file Last Filed Vital Signs Vital Sign Reading Time Taken Comments Blood Pressure 129/65 07/08/2023 11:41 AM EDT Pulse 61 07/08/2023 11:41 AM EDT Temperature 36.5 C (97.7 F) 07/08/2023 11:11 AM EDT Respiratory Rate 11 07/08/2023 11:41 AM EDT Oxygen Saturation 95% 07/08/2023 11:41 AM EDT Inhaled Oxygen Concentration - - Weight 81.6 kg (180 lb) 07/08/2023 8:39 AM EDT Height 177.8 cm (5' 10 ) 07/08/2023 8:39 AM EDT Body Mass Index 25.83 07/08/2023 8:39 AM EDT Plan of Treatment Not on file Medical Devices Implanted Type Area Hoop Machine Operator Device Identifier Shelf Expiration Date Model / Serial / Lot Brandon 10mm Stbl Phalngl Metatrsl [facility] [id number] - [id number] Implanted:Qty: 1 on 07/08/2023 by Basilio Bueno DPM at [facility] Location Right: Foot [employer]OU[employer] 04/25/2025 [id number] / / [id number] Care Teams Hospitalist Nocturnist Physician Relationship Specialty Start Date End Date Jody Chase NP [address] [place] [id number] PCP - General Family Medicine 07/02/23
--- OUTSIDE RECORDS SUMMARY | 2025-02-15 16:27 | XMS_ITS | Patient Health Record ---
Author Organization [facility] Address [address] [place], [place] [id number] Care Team Providers Care Orthotist/Prosthetist Name Role Phone MIRIAN ALLEN Primary Care Provider Jaqueline Hernandez Unavailable [phone] Allergies Allergen (clinical drug ingredient) Drug/Non Drug Allergy documented on EMR Reaction Allergy Type Onset Date Status sulfamethoxazole / trimethoprim Bactrim Unknown Drug Allergy Active clindamycin Clindamycin HCl Unknown Drug Allergy Active Penicillin G Benzathine Unknown Drug Allergy Active Reason For Referral No Information Medications Medication SIG (Take, Route, Frequency, Duration) Notes Start Date End Date Status Restasis 0.05 % 1 drop into affected eye Ophthalmic Twice a day Active Evoxac 30 MG 1 capsule Orally Thr ee times a day; Duration: 30 day(s) 12/21/2018 Active Doxycycline Hyclate 50 MG 1 capsule Oral ly every 12 hrs; Duration: 10 day(s) Active Pantoprazole Sodium 40 MG 1 tablet Orally Once a day Active Lisinopril 20 MG 1 tablet Orally Once a day; Duration: 30 day(s) Active Pilocarpine HCl 5 MG 1 tablet Orally Thr ee times a day; Duration: 30 day(s) 11/27/2021 Active amLODIPine Besylate 5 MG 1 tablet Orally Once a day; Duration: 30 day(s) Active Atenolol 50 MG 1 tablet Orally Once a day; Duration: 30 day(s) Active LORazepam 1 MG 1 tablet at bedtime as needed Orally Once a day Active Ibuprofen 800 MG 1 tablet with food o r milk as needed Orally Three times a day Active Pilocarpine HCl 5 MG 1 tablet Orally Thr ee times a day Active Naproxen 500 MG 1 tablet with food o r milk as needed Orally every 12 hrs Active Finasteride 5 MG 1 tablet Orally Once a day Active Imitrex 100 MG 1 tablet as needed O rally Once a day as needed Active Social History Tobacco Use: Social History Observation Description Date Details (start date - stop date) Former Smoker NA - NA Tobacco Use/Smoking Question Answer Notes Patient is a : former smoker Section Notes: Former smoker, quit 35 years ago, smoked for 20+ years 1 pack per day 2-3 alcoholic drinks per day Denies recreational drug use Former smoker, quit 35 years ago, smoked for 20+ years 1 pack per day 2-3 alcoholic drinks per day Denies recreational drug use Former smoker, quit 35 years ago, smoked for 20+ years 1 pack per day 2-3 alcoholic drinks per day Denies recreational drug use Former smoker, quit 35 years ago, smoked for 20+ years 1 pack per day 2-3 alcoholic drinks per day Denies recreational drug use Former smoker, quit 35 years ago, smoked for 20+ years 1 pack per day 2-3 alcoholic drinks per day Denies recreational drug use Former smoker, quit 35 years ago, smoked for 20+ years 1 pack per day 2-3 alcoholic drinks per day Denies recreational drug use Problems Problem Type SNOMED Code ICD Code Onset Dates Problem Status W/U Status Risk Notes Problem Oral phase dysphagia (948943800) Dysphagia, oral phase (R13.11) Active confirmed Problem 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 Problem Otalgia of left ear (finding) (0472222885) Otalgia, left ear (H92.02) Active confirmed Problem Allergic rhinitis caused by pollen (disorder) (10845941) Allergic rhinitis due to pollen (J30.1) Active confirmed Problem Deviated nasal septum (847418378) Deviated nasal septum (J34.2) Active confirmed Problem Hypertrophy of nasal turbinates (36538012) Hypertrophy of nasal turbinates (J34.3) Active confirmed Problem Chronic laryngitis (68988829) Chronic laryngitis (J37.0) Active confirmed Problem Edema of larynx (94606076) Edema of larynx (J38.4) Active confirmed Problem Disturbance of salivary secretion (59990927) Disturbances of salivary secretion (K11.7) Active confirmed Problem Sicca syndrome (44781397) Sicca syndrome, unspecified (M35.00) Active confirmed Problem Dysphonia (89645026) Dysphonia (R49.0) Active confirmed Problem Dry mouth (61530630) Dry mouth, unspecified (R68.2) Active confirmed Problem Nicotine dependence (78342766) Personal history of nicotine dependence (Z87.891) Active confirmed Plan Of Treatment No Information Insurance Providers Payer Name Payer Address Payer Phone Subscriber Number Group Number Insured Name Patient Relationship to Insured Coverage Start Date Coverage End Date Your Style Unzipped. [address] [place] [address] [id number] Pari Gonzales Self - patient is the insured [facility] [place] [address] [place] [address] [id number] Pari Gonzales Self - patient is the insured Medical (General) History Medical History History ICD Code Anxiety migraines GERD hypertension Surgical History Surgery Date(Month/Year) lumbar back surgery 04/2016 hernia 2015 hernia 2016 hernia 2018 Hospitalization History Reason Date(Month/Year) See Above
== END 2025-02-15 13:37 | disposition home or self-care (01) ==
LOC: HO.HUSH 12:59
PROVIDERS: PCP Registered Nurse; Visit Provider Urology
DX: N41.1 Chronic prostatitis (principal); N52.01 Erectile dysfunction due to arterial insufficiency
CPT/HCPCS: 99214; G2211

== ENCOUNTER → 2025-02-15 12:58 | Outpatient (BNVA) | payer MEDICARE, OTHER, SELFPAY | PROVIDERS: PCP Registered Nurse; Visit Provider Urology | DX: N41.1 Chronic prostatitis (principal); N52.01 Erectile dysfunction due to arterial insufficiency | CPT/HCPCS: 99212 ==